=== PATIENT | male | born 1990 | race Hispanic/Latino ===

== ENCOUNTER 2017-11-22 10:29 | Emergency (ER) | payer OTHER, SELFPAY ==
[2017-11-22] MEDS ORDERED: Adacel (T-DAP) 0.5 ML VIAL ONE (10:37)
[2017-11-22] MEDS ORDERED: HYDROcodone/Acetaminophen 10/325 mg Tablet ONE (10:38)
--- NOTE | 2017-11-22 10:52 | RAD ---
RIGHT HAND 3 VIEWS: Date: 11/22/17 PROVIDED CLINICAL HISTORY: Right hand pain status post injury. FINDINGS: There is no evidence for fracture or other acute osseous abnormality. If there is persistent clinical concern, conservative management and follow-up imaging are advised. IMPRESSION: As above. POS: R[facility]
== END 2017-11-22 11:08 | disposition home or self-care (01) ==
LOC: BURERS 10:29
DX: S60.021A Contusion of right index finger without damage to nail, initial encounter (principal); S60.031A Contusion of right middle finger without damage to nail, initial encounter; S60.041A Contusion of right ring finger without damage to nail, initial encounter; F17.210 Nicotine dependence, cigarettes, uncomplicated; W22.8XXA Striking against or struck by other objects, initial encounter; Y92.69 Other specified industrial and construction area as the place of occurrence of the external cause
CPT/HCPCS: 90471; 90715